=== PATIENT | female | born 1935 ===

== ENCOUNTER 2017-09-04 15:00 | Outpatient (CLI) | payer MEDICARE ==
--- NOTE | 2017-09-04 16:00 | RAD ---
LEFT KNEE FOUR VIEWS: History: Left knee pain. FINDINGS: Moderate joint space narrowing medial compartment with subchondral sclerosis. Prominent tricompartmen bhumika osteophytosis. No acute fracture, dislocation, or fluid distention of the suprapatellar bursa. IMPRESSION: Osteoarthritic changes left knee with moderate joint space loss medial compartment. POS: [facility]
== END 2017-09-04 15:01 | disposition home or self-care (01) ==
LOC: RAD-FRANK 15:00
PROVIDERS: ATTEND Internal Medicine
DX: M17.12 Unilateral primary osteoarthritis, left knee (principal)